=== PATIENT | female | born 1935 | race Caucasian/White ===

== ENCOUNTER → 2018-01-09 | Outpatient (CLI) | payer MEDICARE ==
[~2018-01-09] MED LIST: ARTTEAOPSO OS; ASPI325; ATOR10; ATOR20; ATOR40TA; AZIT250 PO; CHOL10002 PO; CLOP75; CYCL10 PO; DULO30; FURO40 PO; GLIP10 PO; GLIPIZIDE; GLUCHON; GLYB5; HUMALIN N; HUMALOG; HYDACE5 PO; HYDHCL25 PO; HYDMOR2 PO; HYDROXYZINE; Humalog100 UNIT/1; Humulin N100 UNIT/1 SC; Humulin N100 UNIT/1 SQ; IBUP600; INSULANI; KLOR CON PO; LASIX; LEVSOD75 PO; LORA1 PO; LORA2 PO; LOSA50; LOSA50 PO; LOSARTAN; MECL25 PO; MELO7.5 PO; OPTLUBOPOA OS; OXYC5 PO; OXYCODONE; POTA10T PO; PREG50 PO; PROBIOTIC1 EAC1 PO; RXLORA1 PO; Synthroid25 MCG PO; TELM80 PO
[2018-01-09 17:15] LABS: Albumin, Blood 3.8 g/dL (3.4-5.0); Albumin/Globulin Ratio 1.2 (0.8-1.8); Bilirubin, Total 1.7 mg/dL (0.1-1.0); Bun/Creatinine Ratio 20.5 (12.0-20.0); Calcium, Blood 9.3 mg/dL (8.5-10.1); Creatinine, Blood 0.98 mg/dL (0.40-1.00); Globulin, Blood 3.3 g/dL (2.2-4.0); Potassium, Blood 4.5 mmol/L (3.5-5.5); Total Protein, Blood 7.1 g/dL (6.4-8.2)
== END ==
LOC: LAB 12:00
PROVIDERS: Internal Medicine Hematology & Oncology
DX: E11.9 Type 2 diabetes mellitus without complications (principal); R53.81 Other malaise; R53.83 Other fatigue
CPT/HCPCS: 80053; 83036

== ENCOUNTER 2018-06-14 10:54 | Day surgery (SDC) | payer MEDICARE ==
[~2018-06-14] VITALS: Ht 172.7 cm; Wt 98.6 kg
== END 2018-06-14 13:13 | disposition home or self-care (01) ==
LOC: ORSCSDS 10:54
PROVIDERS: Internal Medicine Gastroenterology
PROC: 0DJD8ZZ Inspection of Lower Intestinal Tract, Via Natural or Artificial Opening Endoscopic (ICD-10-PCS; principal; 2018-06-14 12:00)
PROC: 0DB68ZX Excision of Stomach, Via Natural or Artificial Opening Endoscopic, Diagnostic (ICD-10-PCS; principal; 2018-06-14 12:00)
PROC: 0DB98ZX Excision of Duodenum, Via Natural or Artificial Opening Endoscopic, Diagnostic (ICD-10-PCS; principal; 2018-06-14 12:00)
DX: R10.13 Epigastric pain (principal); K64.4 Residual hemorrhoidal skin tags; K64.8 Other hemorrhoids; K57.30 Diverticulosis of large intestine without perforation or abscess without bleeding; Z86.010 Personal history of colon polyps; Z12.11 Encounter for screening for malignant neoplasm of colon; I10 Essential (primary) hypertension; E11.9 Type 2 diabetes mellitus without complications; J45.909 Unspecified asthma, uncomplicated; M79.7 Fibromyalgia; E78.5 Hyperlipidemia, unspecified; G47.33 Obstructive sleep apnea (adult) (pediatric); Z79.4 Long term (current) use of insulin; Z79.899 Other long term (current) drug therapy
CPT/HCPCS: 43239; G0105; 82947; 88305; 88342; J2250; J7030

== ENCOUNTER 2018-10-17 13:18 | Emergency (ER) | payer MEDICARE ==
[~2018-10-17] VITALS: Ht 170.2 cm; Wt 97.5 kg
[2018-10-17] MEDS ORDERED: Neurontin 300300 MG PO (14:30)
[2018-10-17] MEDS ORDERED: HYDMOR4 PO (14:43)
== END 2018-10-17 14:50 | disposition home or self-care (01) ==
LOC: ER 13:18
DX: G89.29 Other chronic pain (principal); M54.9 Dorsalgia, unspecified; E11.40 Type 2 diabetes mellitus with diabetic neuropathy, unspecified; Z79.4 Long term (current) use of insulin
CPT/HCPCS: 96372; 99283; J1885

== ENCOUNTER 2018-11-22 11:14 | Emergency (ER) | payer MEDICARE ==
[~2018-11-22] VITALS: Ht 172.7 cm; Wt 97.5 kg
[~2018-11-22 11:14] MED LIST changes: +HYDMOR4 PO; +Neurontin 300300 MG PO
[2018-11-22] MEDS ORDERED: Humulin N100 UNIT/1 SQ (11:29)
[2018-11-22] MEDS ORDERED: GLIP5 PO (11:29)
[2018-11-22] MEDS ORDERED: GABA300 PO (11:30)
[2018-11-22] MEDS ORDERED: HYDMOR2 PO (11:30)
[2018-11-22 12:05] LABS: BASOPHILS ABSOLUTE AUTO 0.06 K/mm3 (0.00-0.23); BASOPHILS PERCENT AUTO 1 % (0-2); EOSINOPHILS PERCENT AUTO 3 % (0-6); Hematocrit 40.4 % (33.0-51.0); Hemoglobin 13.4 g/dL (11.5-16.0); IMMATURE GRAN ABSOLUTE AUTO 0.01 K/mm3 (0.00-0.10); IMMATURE GRAN PERCENT AUTO 0 % (0-1); LYMPHOCYTES ABSOLUTE AUTO 1.73 K/mm3 (0.84-5.20); LYMPHOCYTES PERCENT AUTO 28 % (21-46); MONOCYTES ABSOLUTE AUTO 0.52 K/mm3 (0.16-1.47); MONOCYTES PERCENT AUTO 8 % (4-13); Mean Corpuscular HGB 32.4 pg (26.0-34.0); Mean Corpuscular HGB Conc 33.2 g/dL (31.5-36.5); Mean Corpuscular Volume 98 fL (80-100); Mean Platelet Volume 11.4 fL (9.1-12.4); NEUTROPHILS ABSOLUTE AUTO 3.64 K/mm3 (1.96-9.15); NEUTROPHILS PERCENT AUTO 59 % (41-73); Platelet Count 325 K/mm3 (150-400); RDW Coefficient Variation 11.9 % (11.7-14.2); RDW Standard Deviation 43.3 fL (35.1-46.3); Red Blood Cell Count 4.13 M/mm3 (3.80-5.20); White Blood Cell Count 6.16 K/mm3 (4.00-11.30)
[2018-11-22 12:06] LABS: Source, Urine Clean Catch
[2018-11-22 12:12] LABS: Bilirubin, Urine Neg (Neg); Blood, Urine 2+ (Neg); Glucose Qualitative, Urine Neg (Neg); Ketones, Urine Neg (Neg); Leukocyte Esterase, Urine 3+ (Neg); Nitrite, Urine Pos (Neg); Protein, Urine 3+ (Neg); Specific Gravity, Urine 1.005 (1.003-1.022); Urobilinogen, Urine NORM (Normal)
[2018-11-22 12:23] LABS: Alanine Aminotransfer (ALT/SGP 32 U/L (12-78); Albumin, Blood 3.6 g/dL (3.4-5.0); Alk Phos 76 U/L (50-136); Anion Gap 8 mmol/L (6-16); Aspartate Aminotrans (AST/SGOT 26 U/L (12-37); Bilirubin, Total 0.4 mg/dL (0.1-1.0); Blood Urea Nitrogen 20 mg/dL (8-24); Bun/Creatinine Ratio 17.9 (12.0-20.0); CO2, Blood 26 mmol/L (21-32); Calcium, Blood 8.9 mg/dL (8.5-10.1); Chloride, Blood 104 mmol/L (98-108); Creatinine, Blood 1.12 mg/dL (0.40-1.00); Globulin, Blood 3.7 g/dL (2.2-4.0); Glomerular Filtration Rate 49 (60-); Glucose, Blood 213 mg/dL (70-99); Potassium, Blood 4.1 mmol/L (3.5-5.5); Sodium, Blood 138 mmol/L (136-145); Total Protein, Blood 7.3 g/dL (6.4-8.2); Troponin I <0.015 ng/mL (0.000-0.040)
[2018-11-22 12:27] LABS: Appearance, Urine Hazy (Clear); Color, Urine Yellow (P-Yellow)
[2018-11-22 12:32] LABS: White Blood Cells, Urine TNTC /hpf (0-5)
[2018-11-22 12:34] LABS: Bacteria Many /hpf; Squamous Epithelial Cells Mod /hpf (Few)
[2018-11-22] MEDS ORDERED: Roxicodone5 MG PO (13:32)
[2018-11-22] MEDS ORDERED: CEPH500 PO (13:32)
== END 2018-11-22 13:44 | disposition home or self-care (01) ==
LOC: ER 11:14
PROVIDERS: Physician Assistant
DX: N39.0 Urinary tract infection, site not specified (principal); G89.29 Other chronic pain; R52 Pain, unspecified; E11.40 Type 2 diabetes mellitus with diabetic neuropathy, unspecified; J45.909 Unspecified asthma, uncomplicated; Z79.899 Other long term (current) drug therapy; Z79.4 Long term (current) use of insulin; Z88.8 Allergy status to other drugs, medicaments and biological substances
CPT/HCPCS: 36415; 80053; 81001; 84484; 85025; 87077; 87086; 87186; 93005; 93010; 96374; 96375; 99284-25; J1170; J2405

== ENCOUNTER 2018-12-28 16:53 | Emergency (ER) | payer MEDICARE ==
[~2018-12-28] VITALS: Ht 172.7 cm; Wt 97.5 kg
[~2018-12-28 16:53] MED LIST changes: +CEPH500 PO; +GABA300 PO; +GLIP5 PO; +Roxicodone5 MG PO
[2018-12-28] MEDS ORDERED: KETO10 PO (18:54)
[2018-12-28] MEDS ORDERED: Cyclobenzaprine5 MG PO (18:54)
== END 2018-12-28 19:12 | disposition home or self-care (01) ==
LOC: ER 16:53
DX: G89.29 Other chronic pain (principal); M54.5 Low back pain; Z88.8 Allergy status to other drugs, medicaments and biological substances; Z79.899 Other long term (current) drug therapy; Z79.4 Long term (current) use of insulin
CPT/HCPCS: 96372; 99283-25; J1885

== ENCOUNTER → 2019-05-02 | Outpatient (CLI) | payer MEDICARE ==
[~2019-05-02] MED LIST changes: +ATOR40TA PO; +Cyclobenzaprine5 MG PO; +KETO10 PO; +METO25 PO
[2019-05-02 17:25] LABS: Creatinine Urine 65.9 mg/dL (27.00-270.00)
== END | disposition home or self-care (01) ==
LOC: LAB 10:57 → LAB SHORT 10:57 → LAB FUT 04-30 17:20
PROVIDERS: Internal Medicine Nephrology
DX: N18.3 Chronic kidney disease, stage 3 (moderate) (principal); D63.1 Anemia in chronic kidney disease; N25.81 Secondary hyperparathyroidism of renal origin; E55.9 Vitamin D deficiency, unspecified; E78.00 Pure hypercholesterolemia, unspecified; R76.9 Abnormal immunological finding in serum, unspecified; R94.5 Abnormal results of liver function studies; R94.6 Abnormal results of thyroid function studies; D51.8 Other vitamin B12 deficiency anemias; D52.8 Other folate deficiency anemias; D50.9 Iron deficiency anemia, unspecified
CPT/HCPCS: 81050; 82043; 82570; 84156

== ENCOUNTER → 2020-01-30 | Outpatient (CLI) | payer MEDICARE ==
[2020-01-30 18:13] LABS: Bilirubin, Urine Neg (Neg); Blood, Urine 1+ (Neg); Glucose Qualitative, Urine 4+ (Neg); Ketones, Urine Neg (Neg); Leukocyte Esterase, Urine Neg (Neg); Nitrite, Urine Pos (Neg); Protein, Urine 2+ (Neg); Urobilinogen, Urine NORM (Normal)
[2020-01-30 18:31] LABS: Appearance, Urine Clear (Clear); Color, Urine Yellow (P-Yellow)
[2020-01-30 18:33] LABS: Bacteria Few /hpf; Red Blood Cells, Urine Rare /hpf (0-2); Squamous Epithelial Cells Few /hpf (Few); White Blood Cells, Urine Rare /hpf (0-5)
[2020-01-30 18:34] LABS: Hyaline Casts 0-2 /lpf (0-2)
== END | disposition home or self-care (01) ==
LOC: LAB 17:23 → LAB SHORT 17:23
PROVIDERS: Internal Medicine Hematology & Oncology
DX: N39.0 Urinary tract infection, site not specified (principal)
CPT/HCPCS: 81001; 87086

== ENCOUNTER → 2020-12-31 | Outpatient (CLI) | payer MEDICARE ==
[~2020-12-31] MED LIST changes: +Ativan0.5 MG PO; +LIDO700A20 TOP
[2020-12-31 19:58] LABS: U Amphetamine Screen Not Detected; U Barbituate Screen Not Detected; U Benzodiazapine Screen Not Detected; U Buprenorphine Screen Not Detected; U Cannabinoids Screen Not Detected; U Cocaine Screen Not Detected; U Methadone Screen Not Detected; U Methamphetamine Screen Not Detected; U Opiates Screen Not Detected; U Oxycodone Screen DETECTED; U Phencyclidine Screen Not Detected; U Propoxyphene Screen Not Detected
== END ==
LOC: LAB SHORT 18:21 → LAB 18:21
PROVIDERS: Internal Medicine Hematology & Oncology
DX: Z51.81 Encounter for therapeutic drug level monitoring (principal); Z79.899 Other long term (current) drug therapy
CPT/HCPCS: G0480

== ENCOUNTER 2021-03-16 15:57 | Emergency (ER) | payer MEDICARE ==
[~2021-03-16] VITALS: Ht 172.7 cm; Wt 97.5 kg
[~2021-03-16 15:57] MED LIST changes: -Ativan0.5 MG PO; -LIDO700A20 TOP
[2021-03-16] MEDS ORDERED: LIDO700A20 TOP (18:27)
== END 2021-03-16 18:40 | disposition home or self-care (01) ==
LOC: ER 15:57
DX: S20.212A Contusion of left front wall of thorax, initial encounter (principal); J45.909 Unspecified asthma, uncomplicated; Z79.899 Other long term (current) drug therapy; Z88.8 Allergy status to other drugs, medicaments and biological substances; W01.10XA Fall on same level from slipping, tripping and stumbling with subsequent striking against unspecified object, initial encounter
CPT/HCPCS: 71101; 99283-25; A9270

== ENCOUNTER 2021-03-22 14:20 | Emergency (ER) | payer MEDICARE ==
[~2021-03-22] VITALS: Ht 172.7 cm; Wt 97.5 kg
[~2021-03-22 14:20] MED LIST changes: +LIDO700A20 TOP
[2021-03-22 15:08] LABS: BASOPHILS ABSOLUTE AUTO 0.06 K/mm3 (0.00-0.23); BASOPHILS PERCENT AUTO 1 % (0-2); EOSINOPHILS ABSOLUTE AUTO 0.38 K/mm3 (0.00-0.68); EOSINOPHILS PERCENT AUTO 4 % (0-6); Hematocrit 36.3 % (33.0-51.0); Hemoglobin 11.7 g/dL (11.5-16.0); IMMATURE GRAN ABSOLUTE AUTO 0.03 K/mm3 (0.00-0.10); IMMATURE GRAN PERCENT AUTO 0 % (0-1); LYMPHOCYTES ABSOLUTE AUTO 2.21 K/mm3 (0.84-5.20); LYMPHOCYTES PERCENT AUTO 21 % (21-46); MONOCYTES ABSOLUTE AUTO 0.73 K/mm3 (0.16-1.47); MONOCYTES PERCENT AUTO 7 % (4-13); Mean Corpuscular HGB 31.8 pg (26.0-34.0); Mean Corpuscular HGB Conc 32.2 g/dL (31.5-36.5); Mean Corpuscular Volume 99 fL (80-100); Mean Platelet Volume 10.8 fL (9.1-12.4); NEUTROPHILS ABSOLUTE AUTO 7.23 K/mm3 (1.96-9.15); NEUTROPHILS PERCENT AUTO 68 % (41-73); Platelet Count 485 K/mm3 (150-400); RDW Coefficient Variation 12.8 % (11.7-14.2); Red Blood Cell Count 3.68 M/mm3 (3.80-5.20); White Blood Cell Count 10.64 K/mm3 (4.00-11.30)
[2021-03-22 15:32] LABS: Alanine Aminotransfer (ALT/SGP 32 U/L (12-78); Albumin, Blood 3.4 g/dL (3.4-5.0); Albumin/Globulin Ratio 0.9 (0.8-1.8); Alk Phos 120 U/L (50-136); Anion Gap 3 mmol/L (6-16); Aspartate Aminotrans (AST/SGOT 31 U/L (12-37); Bilirubin, Total 0.4 mg/dL (0.1-1.0); Blood Urea Nitrogen 43 mg/dL (8-24); Bun/Creatinine Ratio 33.1 (12.0-20.0); CO2, Blood 28 mmol/L (21-32); Calcium, Blood 9.3 mg/dL (8.5-10.1); Chloride, Blood 104 mmol/L (98-108); Globulin, Blood 3.9 g/dL (2.2-4.0); Glomerular Filtration Rate 41 (60-); Glucose, Blood 60 mg/dL (70-99); Potassium, Blood 4.4 mmol/L (3.5-5.5); Sodium, Blood 135 mmol/L (136-145); Total Protein, Blood 7.3 g/dL (6.4-8.2); Troponin I <0.015 ng/mL (0.000-0.040)
[2021-03-22 19:39] LABS: Source, Urine Clean Catch
[2021-03-22 19:42] LABS: Appearance, Urine Clear (Clear); Bilirubin, Urine Neg (Neg); Blood, Urine 2+ (Neg); Color, Urine Yellow (P-Yellow); Glucose Qualitative, Urine Neg (Neg); Ketones, Urine Neg (Neg); Leukocyte Esterase, Urine Neg (Neg); Nitrite, Urine Neg (Neg); Protein, Urine 2+ (Neg); Urobilinogen, Urine NORM (Normal)
[2021-03-22 19:50] LABS: Bacteria Few /hpf; Red Blood Cells, Urine Rare /hpf (0-2); Squamous Epithelial Cells Few /hpf (Few)
[2021-03-22] MEDS ORDERED: LIDO700A20 TOP (19:52)
== END 2021-03-22 20:05 | disposition home or self-care (01) ==
LOC: ER 14:20
PROVIDERS: Emergency Medicine; Physician Assistant
DX: S22.32XA Fracture of one rib, left side, initial encounter for closed fracture (principal); I10 Essential (primary) hypertension; E11.9 Type 2 diabetes mellitus without complications; Z88.8 Allergy status to other drugs, medicaments and biological substances; Z79.4 Long term (current) use of insulin; W01.10XA Fall on same level from slipping, tripping and stumbling with subsequent striking against unspecified object, initial encounter
CPT/HCPCS: 36415; 71046; 80053; 81001; 82947; 83880; 84484; 85025; 93005; 93010; 99284-25; A9270

== ENCOUNTER 2021-03-28 12:58 | Emergency (ER) | payer MEDICARE ==
[~2021-03-28] VITALS: Ht 165.1 cm; Wt 90.7 kg
== END 2021-03-28 15:48 | disposition home or self-care (01) ==
LOC: ER 12:58
DX: S20.212A Contusion of left front wall of thorax, initial encounter (principal); Z88.8 Allergy status to other drugs, medicaments and biological substances; Z79.84 Long term (current) use of oral hypoglycemic drugs; Z79.899 Other long term (current) drug therapy; W18.2XXA Fall in (into) shower or empty bathtub, initial encounter
CPT/HCPCS: 99283; A9270

== ENCOUNTER → 2021-04-07 | Outpatient (CLI) | payer MEDICARE ==
[~2021-04-07] MED LIST changes: +Ativan0.5 MG PO
== END | disposition home or self-care (01) ==
LOC: LAB SHORT 16:38
DX: N39.0 Urinary tract infection, site not specified (principal)
CPT/HCPCS: 87086

== ENCOUNTER 2021-05-17 08:45 | Emergency (ER) | payer MEDICARE ==
[~2021-05-17] VITALS: Ht 172.7 cm; Wt 90.7 kg
[~2021-05-17 08:45] MED LIST changes: -Ativan0.5 MG PO
[2021-05-17 09:24] LABS: BASOPHILS ABSOLUTE AUTO 0.07 K/mm3 (0.00-0.23); BASOPHILS PERCENT AUTO 1 % (0-2); EOSINOPHILS ABSOLUTE AUTO 0.23 K/mm3 (0.00-0.68); EOSINOPHILS PERCENT AUTO 3 % (0-6); Hematocrit 39.9 % (33.0-51.0); Hemoglobin 13.2 g/dL (11.5-16.0); IMMATURE GRAN ABSOLUTE AUTO 0.02 K/mm3 (0.00-0.10); IMMATURE GRAN PERCENT AUTO 0 % (0-1); LYMPHOCYTES ABSOLUTE AUTO 2.09 K/mm3 (0.84-5.20); LYMPHOCYTES PERCENT AUTO 24 % (21-46); MONOCYTES ABSOLUTE AUTO 0.63 K/mm3 (0.16-1.47); MONOCYTES PERCENT AUTO 7 % (4-13); Mean Corpuscular HGB Conc 33.1 g/dL (31.5-36.5); Mean Corpuscular Volume 97 fL (80-100); Mean Platelet Volume 11.7 fL (9.1-12.4); NEUTROPHILS ABSOLUTE AUTO 5.79 K/mm3 (1.96-9.15); NEUTROPHILS PERCENT AUTO 66 % (41-73); Platelet Count 464 K/mm3 (150-400); RDW Standard Deviation 46.5 fL (35.1-46.3); Red Blood Cell Count 4.12 M/mm3 (3.80-5.20); White Blood Cell Count 8.83 K/mm3 (4.00-11.30)
[2021-05-17 09:37] LABS: Alanine Aminotransfer (ALT/SGP 37 U/L (12-78); Albumin, Blood 3.4 g/dL (3.4-5.0); Albumin/Globulin Ratio 0.8 (0.8-1.8); Alk Phos 113 U/L (50-136); Anion Gap 6 mmol/L (6-16); Aspartate Aminotrans (AST/SGOT 39 U/L (12-37); Bilirubin, Total 0.6 mg/dL (0.1-1.0); Blood Urea Nitrogen 22 mg/dL (8-24); Bun/Creatinine Ratio 21.8 (12.0-20.0); CO2, Blood 28 mmol/L (21-32); Calcium, Blood 9.5 mg/dL (8.5-10.1); Chloride, Blood 103 mmol/L (98-108); Creatinine, Blood 1.01 mg/dL (0.40-1.00); Glomerular Filtration Rate 52 (60-); Glucose, Blood 155 mg/dL (70-99); Potassium, Blood 4.3 mmol/L (3.5-5.5); Sodium, Blood 137 mmol/L (136-145); Total Protein, Blood 7.4 g/dL (6.4-8.2); Troponin I <0.015 ng/mL (0.000-0.040)
[2021-05-17] MEDS ORDERED: Ativan0.5 MG PO (11:31)
== END 2021-05-17 13:18 | disposition home or self-care (01) ==
LOC: ER 08:45
PROVIDERS: Physician Assistant
DX: M54.6 Pain in thoracic spine (principal); F41.9 Anxiety disorder, unspecified; I10 Essential (primary) hypertension; Z88.8 Allergy status to other drugs, medicaments and biological substances
CPT/HCPCS: 36415; 71046; 80053; 84484; 85025; 85379; 93005; 93010; 96374; 96375; 99284-25; A9270; J1885; J2060; J2405

== ENCOUNTER 2021-07-28 14:09 | Emergency (ER) | payer MEDICARE ==
[~2021-07-28] VITALS: Ht 172.7 cm; Wt 90.7 kg
[~2021-07-28 14:09] MED LIST changes: +Ativan0.5 MG PO
[2021-07-28 14:54] LABS: BASOPHILS ABSOLUTE AUTO 0.05 K/mm3 (0.00-0.23); BASOPHILS PERCENT AUTO 1 % (0-2); EOSINOPHILS ABSOLUTE AUTO 0.22 K/mm3 (0.00-0.68); EOSINOPHILS PERCENT AUTO 2 % (0-6); Hematocrit 39.2 % (33.0-51.0); Hemoglobin 13.1 g/dL (11.5-16.0); IMMATURE GRAN ABSOLUTE AUTO 0.03 K/mm3 (0.00-0.10); IMMATURE GRAN PERCENT AUTO 0 % (0-1); LYMPHOCYTES ABSOLUTE AUTO 1.62 K/mm3 (0.84-5.20); LYMPHOCYTES PERCENT AUTO 16 % (21-46); MONOCYTES ABSOLUTE AUTO 0.75 K/mm3 (0.16-1.47); MONOCYTES PERCENT AUTO 7 % (4-13); Mean Corpuscular HGB 32.3 pg (26.0-34.0); Mean Corpuscular HGB Conc 33.4 g/dL (31.5-36.5); Mean Corpuscular Volume 97 fL (80-100); Mean Platelet Volume 11.5 fL (9.1-12.4); NEUTROPHILS ABSOLUTE AUTO 7.43 K/mm3 (1.96-9.15); NEUTROPHILS PERCENT AUTO 74 % (41-73); Platelet Count 452 K/mm3 (150-400); RDW Coefficient Variation 12.5 % (11.7-14.2); Red Blood Cell Count 4.06 M/mm3 (3.80-5.20)
[2021-07-28 15:09] LABS: Alanine Aminotransfer (ALT/SGP 32 U/L (12-78); Albumin, Blood 3.4 g/dL (3.4-5.0); Albumin/Globulin Ratio 0.8 (0.8-1.8); Alk Phos 112 U/L (50-136); Anion Gap 5 mmol/L (6-16); Aspartate Aminotrans (AST/SGOT 31 U/L (12-37); Bilirubin, Total 0.4 mg/dL (0.1-1.0); Blood Urea Nitrogen 36 mg/dL (8-24); Bun/Creatinine Ratio 25.5 (12.0-20.0); CO2, Blood 30 mmol/L (21-32); Calcium, Blood 10.1 mg/dL (8.5-10.1); Chloride, Blood 101 mmol/L (98-108); Creatinine, Blood 1.41 mg/dL (0.40-1.00); Globulin, Blood 4.1 g/dL (2.2-4.0); Glomerular Filtration Rate 35 (60-); Glucose, Blood 161 mg/dL (70-99); Sodium, Blood 136 mmol/L (136-145); Total Protein, Blood 7.5 g/dL (6.4-8.2); Troponin I <0.015 ng/mL (0.000-0.040)
== END 2021-07-28 21:06 | disposition home or self-care (01) ==
LOC: ER 14:09
PROVIDERS: Physician Assistant
DX: H53.9 Unspecified visual disturbance (principal); R42 Dizziness and giddiness; R10.9 Unspecified abdominal pain; G89.29 Other chronic pain; J45.909 Unspecified asthma, uncomplicated; I10 Essential (primary) hypertension; I25.10 Atherosclerotic heart disease of native coronary artery without angina pectoris; E11.9 Type 2 diabetes mellitus without complications; I25.2 Old myocardial infarction; Z88.8 Allergy status to other drugs, medicaments and biological substances; Z79.899 Other long term (current) drug therapy; Z79.84 Long term (current) use of oral hypoglycemic drugs
CPT/HCPCS: 36415; 70450; 80053; 84484; 85025; 93005; 93010; 99284-25

== ENCOUNTER 2022-03-26 16:40 | Inpatient (IN) | payer MEDICARE ==
[~2022-03-26] VITALS: Ht 167.6 cm; Wt 96.7 kg
[2022-03-26 16:50] LABS: Calcium, Ionized (POC) 1.11 mmol/L (1.10-1.46); Chloride (POC) 102 mmol/L (98-108); Glucose (ISTAT POC) 475 mg/dL (70-99); Hemoglobin (POC) 15.6 g/dL (12.0-16.0); Potassium (POC) 5.2 mmol/L (3.5-5.5); Sodium (POC) 137 mmol/L (135-148); Total CO2 (POC) 25 mmol/L (21-32)
[2022-03-26 17:04] LABS: Source, Urine Foley catheter
[2022-03-26 17:05] LABS: BASOPHILS ABSOLUTE AUTO 0.03 K/mm3 (0.00-0.23); BASOPHILS PERCENT AUTO 0 % (0-2); EOSINOPHILS PERCENT AUTO 0 % (0-6); Hematocrit 43.6 % (33.0-51.0); Hemoglobin 14.4 g/dL (11.5-16.0); IMMATURE GRAN ABSOLUTE AUTO 0.07 K/mm3 (0.00-0.10); IMMATURE GRAN PERCENT AUTO 0 % (0-1); LYMPHOCYTES ABSOLUTE AUTO 1.05 K/mm3 (0.84-5.20); LYMPHOCYTES PERCENT AUTO 6 % (21-46); MONOCYTES ABSOLUTE AUTO 0.94 K/mm3 (0.16-1.47); MONOCYTES PERCENT AUTO 6 % (4-13); Mean Corpuscular HGB 31.4 pg (26.0-34.0); Mean Corpuscular Volume 95 fL (80-100); Mean Platelet Volume 11.5 fL (9.1-12.4); NEUTROPHILS ABSOLUTE AUTO 14.81 K/mm3 (1.96-9.15); NEUTROPHILS PERCENT AUTO 88 % (41-73); Platelet Count 504 K/mm3 (150-400); RDW Coefficient Variation 12.9 % (11.7-14.2); RDW Standard Deviation 44.7 fL (35.1-46.3); Red Blood Cell Count 4.58 M/mm3 (3.80-5.20)
[2022-03-26 17:06] LABS: Appearance, Urine Clear (Clear); Bilirubin, Urine Neg (Neg); Blood, Urine 3+ (Neg); Color, Urine Yellow (P-Yellow); Glucose Qualitative, Urine Neg (Neg); Ketones, Urine 1+ (Neg); Leukocyte Esterase, Urine Neg (Neg); Nitrite, Urine Neg (Neg); Protein, Urine 3+ (Neg); Urobilinogen, Urine NORM (Normal)
[2022-03-26 17:15] LABS: Bacteria Mod /hpf; Hyaline Casts 0-2 /lpf (0-2); Squamous Epithelial Cells Mod /hpf (Few)
[2022-03-26 17:19] LABS: PCO2 Arterial 38.1 mmHg (35-45); pH Blood Arterial 7.43 (7.35-7.45)
[2022-03-26 17:23] LABS: Albumin, Blood 3.6 g/dL (3.4-5.0); Albumin/Globulin Ratio 0.8 (0.8-1.8); Bilirubin, Total 0.6 mg/dL (0.1-1.0); Bun/Creatinine Ratio 28.7 (12.0-20.0); Calcium, Blood 9.5 mg/dL (8.5-10.1); Creatine Kinase MB 1.1 ng/mL (0.0-3.6); Creatine Kinase MB Index 0.4 (0.0-4.0); Creatinine, Blood 1.71 mg/dL (0.40-1.00); Globulin, Blood 4.3 g/dL (2.2-4.0); Total Protein, Blood 7.9 g/dL (6.4-8.2)
[2022-03-26] MEDS ORDERED: GLIP10 PO (18:02)
[2022-03-26] MEDS ORDERED: FURO20 PO (18:02)
[2022-03-26] MEDS ORDERED: LEVSOD25 PO (18:03)
[2022-03-26] MEDS ORDERED: ASPI325 PO (18:03)
[2022-03-26] MEDS ORDERED: VITAMIN D325 MC3 PO (18:04)
[2022-03-26 18:20] LABS: Influenza A, PCR NEGATIVE (NEGATIVE); Influenza B, PCR NEGATIVE (NEGATIVE); Resp Syncytial Virus, PCR NEGATIVE (NEGATIVE); SARS-Cov-2 (COVID-19) PCR, MMC NEGATIVE (NEGATIVE)
[2022-03-26 19:20] LABS: U Amphetamine Screen Not Detected; U Barbituate Screen Not Detected; U Benzodiazapine Screen Not Detected; U Buprenorphine Screen Not Detected; U Cannabinoids Screen Not Detected; U Cocaine Screen Not Detected; U Methadone Screen Not Detected; U Methamphetamine Screen Not Detected; U Opiates Screen Not Detected; U Oxycodone Screen DETECTED; U Phencyclidine Screen Not Detected; U Propoxyphene Screen Not Detected
--- NOTE | 2022-03-26 19:40 | NUR ---
ARRIVAL TO ICU PT WAS INTUBATED BY EMS, 7.0 TUBE THAT IS 23CM AT LIPS. VENT SETTINGS AC/VC+ 16/450/5/50%. SHE IS RECEIVING PROPOFOL 10MCG/KG/MIN. SHE HAS NO GAG OR COUGH. SHE MAKES SMALL MOVEMENTS WITH HEAD AND EXTREMITIES BUT DOES NOT FOLLOW ANY COMMANDS. SHE WITHDRAWS FROM PAINFUL STIMULI. PROPOFOL UP TO 20MCG/KG/MIN. COARSE AND RHONCHI THROUGHOUT. BOWEL TONES HYPOACTIVE. TONGUE IS SWOLLEN, UNKNOWN CAUSE. BOOTH PATENT AND DRAINING CLEAR YELLOW URINE TO GRAVITY. SHE IS HYPERTENSIVE WITH SBP 190S. DAUGHTER SHERIN AND NEPHEW ELIEL AT BEDSIDE. THEY PROVIDED ADMISSION HEALTH HISTORY. DR SHEA AT BEDSIDE FOR EVALUATION. UPDATED FAMILY ON PT'S CONDITION AND PLAN OF CARE. FAMILY EXPRESSES PT WOULD WANT VISIT FROM CREDIT CARD INTERVIEWER AND PALLIATIVE CARE. NARCAN INFUSION AND NS STARTED. PROPOFOL ON STANDBY. SEE SHIFT ASSESSMENT.
--- NOTE | 2022-03-26 21:50 | NUR ---
UPDATE PROPOFOL REMAINS ON STANDBY, NARCAN INFUSING. PT NOW HAS COUGH REFLEX WHEN SUCTIONING ETT AND FACIAL GRIMACING. PT OPENS EYES TO VERBAL COMMAND, SQUEEZES WITH BILAT HANDS AND WIGGLES TOES TO COMMAND. SHE IS ANSWERING QUESTIONS BY NODDING/SHAKING HEAD. SHE DENIES PAIN OR DISCOMFORT. EXPLAINED PT IS IN THE HOSPITAL TO WHICH SHE NODS HER HEAD "YES". SHE REMAINS HYPERTENSIVE, HYDRALAZINE GIVEN PER EMAR. ANTIBIOTIC STARTED. WILL CONTINUE TO MONITOR.
--- NOTE | 2022-03-27 00:15 | NUR ---
UPDATE/POSSIBLE ASPIRATION PT RECEIVING NARCAN INFUSION, PROPOFOL ON STANDBY. PT WAKENS TO VERBAL STIMULI ALTHOUGH SLOW TO RESPOND SHE IS ABLE TO FOLLOW SIMPLE COMMANDS INCLUDING OPENING EYES, SQUEEZING HANDS AND WIGGLING TOES. PT BEGINS COUGHING AND VOMITING BROWN LIQUID FROM HER MOUTH AND NOSE. HEAD OF BED RAISED TO HIGH FOWLERS POSITION, ORAL AND ETT SUCTIONING PROVIDED. PT MEDICATED WITH ZOFRAN. PT CONTINUES TO GAG/COUGH AND VOMIT. NARCAN INFUSION STOPPED, PROPOFOL REINITIATED AT 20MCG/KG/MIN. ONCE PT IS CALM, COMPLETE BEDBATH AND ORAL CARE DONE. CORE TEMP INCREASED TO 99.6. DR BOO NOTIFIED OF EVENT. ORDER RECEIVED FOR VBG. PLAN TO COMPLETE ROUTINE CHEST XRAY AND SCHEDULED ANTIBIOTICS. IF PT'S CONDITION DETERIORATES, PLAN FOR STAT CHEST XRAY AND WILL NOTIFY PROVIDER.
[2022-03-27 01:24] LABS: Base Excess Venous 1.7 mmol/L; PCO2 Venous 44.1 mmHg (38-42); pH Blood Venous 7.39 (7.34-7.37)
[2022-03-27 03:23] LABS: PCO2 Arterial 43.5 mmHg (35-45); PO2 Arterial 62.5 mmHg (80-100); pH Blood Arterial 7.42 (7.35-7.45)
--- NOTE | 2022-03-27 06:23 | NUR ---
SHIFT SUMMARY PT REMAINS INTUBATED WITH VENT SETTINGS AC/VC+ 16/450/5/30%. SHE IS RECEIVING PROPOFOL 10MCG/KG/MIN. SHE WAS PREVIOUSLY ON NARCAN DRIP WITHOUT SEDATION. SHE WAS ABLE TO FOLLOW SIMPLE COMMANDS, SQUEEZE HANDS, WIGGLE TOES, ANSWER QUESTIONS BY NODDING/SHAKING HEAD. SHE BEGAN TO FREQUENTLY COUGH. SEE PREVIOUS NOTE REGARDING VOMITING. SINCE THIS EPISODE AND PROPOFOL BEING RESTARTED, PT HAS NOT HAD MORE EMESIS. CHEST XRAY DONE THIS AM. CORE TMAX 99.8. ICE PACKS AND FAN APPLIED. SHE IS RECEIVING NS 75ML/HR. OGT REMAINS CONNECTED TO LOW INT SUCTION WITH BILE AND BROWN DRAINAGE. COLLECTED 200ML OF OGT DRAINAGE THIS SHIFT. BOOTH IS PATENT AND DRAINING CLEAR/YELLOW URINE WITH APPROX 2L OUT THIS SHIFT. PLAN FOR ECHO THIS AM AND REPEAT HEAD CT IN AFTERNOON. WILL REPORT TO ONCOMING RN.
--- NOTE | 2022-03-27 06:54 | NUR ---
UPDATE SINCE PROPOFOL DECREASED FROM 15 TO 10MCG/KG/MIN PT IS ABLE TO PARTIALLY OPEN EYES TO VERBAL COMMAND. SHE ATTEMPTS TO TURN HEAD TOWARD SOUND. SHE IS ABLE TO SQUEEZE STRONGLY WITH HER R HAND, SLOWER AND WEAKER WITH L HAND. PT WIGGLES TOES ON BOTH FEET WITHOUT DIFFICULTY. ATTEMPTED TO ASK QUESTIONS BUT SHE IS NOT NODDING/SHAKING HEAD AT THIS TIME.
[2022-03-27 07:00] LABS: BASOPHILS ABSOLUTE AUTO 0.05 K/mm3 (0.00-0.23); BASOPHILS PERCENT AUTO 0 % (0-2); EOSINOPHILS ABSOLUTE AUTO 0.01 K/mm3 (0.00-0.68); EOSINOPHILS PERCENT AUTO 0 % (0-6); Hemoglobin 14.1 g/dL (11.5-16.0); IMMATURE GRAN ABSOLUTE AUTO 0.08 K/mm3 (0.00-0.10); IMMATURE GRAN PERCENT AUTO 0 % (0-1); LYMPHOCYTES ABSOLUTE AUTO 1.93 K/mm3 (0.84-5.20); LYMPHOCYTES PERCENT AUTO 9 % (21-46); MONOCYTES ABSOLUTE AUTO 1.72 K/mm3 (0.16-1.47); MONOCYTES PERCENT AUTO 8 % (4-13); Mean Corpuscular HGB 31.5 pg (26.0-34.0); Mean Corpuscular Volume 98 fL (80-100); Mean Platelet Volume 11.4 fL (9.1-12.4); NEUTROPHILS ABSOLUTE AUTO 16.78 K/mm3 (1.96-9.15); NEUTROPHILS PERCENT AUTO 82 % (41-73); Platelet Count 408 K/mm3 (150-400); RDW Coefficient Variation 12.9 % (11.7-14.2); RDW Standard Deviation 46.5 fL (35.1-46.3); Red Blood Cell Count 4.48 M/mm3 (3.80-5.20); White Blood Cell Count 20.57 K/mm3 (4.00-11.30)
[2022-03-27 07:18] LABS: Albumin, Blood 3.2 g/dL (3.4-5.0); Albumin/Globulin Ratio 0.8 (0.8-1.8); Bilirubin, Total 0.7 mg/dL (0.1-1.0); Bun/Creatinine Ratio 32.3 (12.0-20.0); Calcium, Blood 8.9 mg/dL (8.5-10.1); Creatinine, Blood 1.3 mg/dL (0.40-1.00); Globulin, Blood 3.9 g/dL (2.2-4.0); Potassium, Blood 3.8 mmol/L (3.5-5.5); Total Protein, Blood 7.1 g/dL (6.4-8.2)
--- NOTE | 2022-03-27 08:43 | NUR ---
Care Assumed 0700 Pt intubated and sedated. Propofol 10 mcg/kg/min and NS at 75 ml/hr. AC/VC+ 16/450/5/30%, SPO2 > 90%, LS clear/dim. Brown output during deep oral suction. Pt grimaces during oral care but unable to follow commands. Moves all extrems to painful stimuli. OGT to LIS with brown/bile driange. Bilateral restraints in place. Russ in place with yellow/clear output of 25 mls in bag currently. VSS. NSR with occasional PVC'S, HR 80'S. SBP 150'S. Core temp of 99.6, ice packs in place.
--- NOTE | 2022-03-27 09:35 | NUR ---
Providers visits Dr. Roberts at bedside and asked to start sedation vacation. Updated on current care. Dr. Maurice and Dr. Dunaway at bedside and updated on current care. Providers ordered see labs and medication, see emar. Daughter, and son at bedside, updated on care by providers.
--- NOTE | 2022-03-27 10:39 | NUR ---
Sedation vacation 0938 PS 5/5, FIO2 30%, tolerating well RR 22, tidal volumes 300's. Propofol placed on SB. Pt able to open her eyes, following directions, nod yes/no to questions but still drowsy. Strong fence supervisor on right hand and weak on left hand. Moves lower extrems when asked to. Family at bedside. When asked if she remembers what happened, pt nods no. Updated on current events and care being provided. VSS.
--- NOTE | 2022-03-27 12:08 | NUR ---
GLucose elevated [address] Roberts and pt to be started on insulin GTT. Pt has poor access and powerglide to be placed.
--- NOTE | 2022-03-27 17:00 | NUR ---
SEDATION VACATION ENDED Dr. Roberts at bedside and Vent settings changed from PS TO AC/VC 16/450/5/40%, SPO2 > 90%. Pt had one episode of SPO2 decreasing to 84%, suctioned large thick blood tinged secreations from ETT. Another episode of SPO2 decreasing to 88%, not improved with suctioning and after this Dr. Roberts swithced to AC/VC. Propofol 10 mcg/kg/min restarted.
--- NOTE | 2022-03-27 17:45 | NUR ---
PT TO CT at [address] VIA BED AND RT AT BEDSIDE. PT TOLERATED WELL. VSS.
--- NOTE | 2022-03-27 17:59 | NUR ---
Family update Spoke to patients ina ([place] [phone]) via phone and updated on current care being provided. All questions answered.
--- NOTE | 2022-03-27 19:20 | NUR ---
ASSUMPTION OF CARE PT REMAINS INTUBATED WITH VENT SETTINGS AC/VC 16/450/5/40%. SHE IS RECEIVING PROPOFOL 10MCG/KG/MIN, INSULIN 2UNITS/HR AND NS TKO. BOOTH PATENT AND DRAINING TO GRAVITY. VSS. SEE SHIFT ASSESSMENT.
--- NOTE | 2022-03-27 20:05 | NUR ---
Shift Summary Pt intubated and sedated. AC/VC 16/450/5/40%, SPO2 > 92%, LS clear/dim. Propofol GTT 10 mcg/kg/min and insulin 2 u/hr infusing via IRENE powerglide. Following commands througout the day when not on propofol. BT active, OGT to LIS. SWB in place. Temp dunn in place. Pt hypertensive and treated per emar. VSS now. Family at bedside throughout the day. Will report to nightshift nurse.
[2022-03-28 04:04] LABS: BASOPHILS ABSOLUTE AUTO 0.08 K/mm3 (0.00-0.23); BASOPHILS PERCENT AUTO 0 % (0-2); EOSINOPHILS ABSOLUTE AUTO 0.08 K/mm3 (0.00-0.68); EOSINOPHILS PERCENT AUTO 0 % (0-6); Hematocrit 41.8 % (33.0-51.0); Hemoglobin 13.4 g/dL (11.5-16.0); IMMATURE GRAN PERCENT AUTO 1 % (0-1); LYMPHOCYTES ABSOLUTE AUTO 2.23 K/mm3 (0.84-5.20); LYMPHOCYTES PERCENT AUTO 11 % (21-46); MONOCYTES ABSOLUTE AUTO 1.21 K/mm3 (0.16-1.47); MONOCYTES PERCENT AUTO 6 % (4-13); Mean Corpuscular HGB 31.7 pg (26.0-34.0); Mean Corpuscular HGB Conc 32.1 g/dL (31.5-36.5); Mean Corpuscular Volume 99 fL (80-100); Mean Platelet Volume 11.6 fL (9.1-12.4); NEUTROPHILS ABSOLUTE AUTO 16.78 K/mm3 (1.96-9.15); NEUTROPHILS PERCENT AUTO 82 % (41-73); Platelet Count 383 K/mm3 (150-400); RDW Coefficient Variation 13.2 % (11.7-14.2); RDW Standard Deviation 47.2 fL (35.1-46.3); Red Blood Cell Count 4.23 M/mm3 (3.80-5.20); White Blood Cell Count 20.58 K/mm3 (4.00-11.30)
[2022-03-28 04:27] LABS: Albumin, Blood 2.9 g/dL (3.4-5.0); Albumin/Globulin Ratio 0.8 (0.8-1.8); Bilirubin, Total 0.7 mg/dL (0.1-1.0); Bun/Creatinine Ratio 31.2 (12.0-20.0); Calcium, Blood 9.2 mg/dL (8.5-10.1); Creatinine, Blood 1.12 mg/dL (0.40-1.00); Globulin, Blood 3.8 g/dL (2.2-4.0); Potassium, Blood 3.4 mmol/L (3.5-5.5); Total Protein, Blood 6.7 g/dL (6.4-8.2)
--- NOTE | 2022-03-28 06:13 | NUR ---
SHIFT SUMMARY PT REMAINS INTUBATED WITH VENT SETTINGS AC/VC 16/450/5/40%. PROPOFOL WAS STOPPED AT 0500 TO PREPARE FOR SBT. PT WAKENS TO VERBAL STIMULI, OPENS EYES, SQUEEZES HANDS AND WIGGLES TOES. SHE ANSWERS QUESTIONS BY NODDING HEAD. SHE DENIES PAIN, DISCOMFORT, NAUSEA, AND ANXIETY. SHE RESTS WITH EYES CLOSED. SHE HAS BEEN HYPERTENSIVE ON AND OFF THROUGHOUT THE NIGHT. WHEN RT ARRIVED FOR SBT, SBP 190S. CALL PLACED TO HOSPITALIST. ORDER RECEIVED FOR EXTRA DOSE OF HYDRALAZINE. PROPOFOL RESTARTED AND PLAN TO ATTEMPT SBT AGAIN. OGT REMAINS CONNECTED TO LOW INT SUCTION WITH SMALL AMOUNT OF BROWN/GREEN BILE. BOWEL TONES ACTIVE. SMALL SMEAR THIS SHIFT. BOOTH IS PATENT AND DRAINING YELLOW/CLEAR URINE TO GRAVITY WITH SHIFT OUTPUT OF 425ML. WILL REPORT TO ONCOMING RN.
--- NOTE | 2022-03-28 09:37 | NUR ---
ASSUMED CARE / DR THORNTON: REPORT RECEIVED FROM MALCOM Barriga RN. ASSUMED CARE OF THIS PT AT APPROX 0700. ON ASSESSMENT, THE PT IS RESTING QUIETLY. SEDATION VACATION BEGAN AT 0630 & SBT BEGAN AT 0715. THE PT AWAKENS EASILY TO VERBAL STIMULUS & IS ABLE TO ANSWER SIMPLE YES/ NO QUESTIONS BY NODDING HEAD. SHE FOLLOWS DIRECTIONS BUT IS SLOW TO RESPOND. LS ARE CLEAR T/O, VENT SETTINGS: SPONT W/ PS 5, PEEP 5 & FIO2 40%. ADEQUATE TVs & RR NOTED AT THIS TIME. MONTOR SHOWS SR W/ HR 80-90s, HTN W/ SCHEDULED AM MEDS GIVEN PER OGT. BT HYPOACTIVE W/ OGT IN PLACE TO LIS, CLAMPED FOR APPROX 1 HR AFTER TRICK RODEO RIDER. BOOTH PATENT/ DRAINING YELLOW URINE. SKIN CONDITION OVERALL INTACT, Q2H REPOSITIONING TO MAINTAIN SKIN INTEGRITY. PROVIDER AT BEDSIDE THIS AM TO EVAL PT. DISCUSSED PT's CONTINUED HTN & RESUMPTION OF HOME COZAAR DOSE PER DR SHEA TO START TODAY. ALSO DISCUSSED PT's ELEVATED CBG READING W/ INSULIN COVERAGE ORDERED Q6H. PROVIDER IS CONSIDERING INCREASING THIS INSULIN COVERAGE TO Q4H. NO OTHER CHANGES AT THIS TIME. WILL CONTINUE TO MONITOR & UPDATE NEEDED.
--- NOTE | 2022-03-28 11:55 | NUR ---
DR MOORE / UPDATE: PROVIDER AT BEDSIDE TO EVAL THIS PT. SHE CONTINUES TO TOLERATE SEDATION VACATION & SBT WELL W/ RR 18-22 & ADEQUATE TVs. SHE IS FOLLOWING DIRECTIONS & MOVING ALL EXTREMITIES, ALTHOUGH REMAINS SLOW TO DO SO. ANSWERS YES/ NO QUESTIONS BY NODDING HEAD. VENT SETTINGS UNCHANGED: SPONTANEOUS W/ PS 5, PEEP 5 & 40% FIO2. DR MOORE STS OKAY FOR EXTUBATION LONG PT HAS ETT CUFF LEAK. YESTERDAY, PER NOTES, THE PT DID NOT HAVE A CUFF LEAK & THERE IS SOME CONCERN REGARDING TRAUMATIC FIELD INTUBATION/ AIRWAY SWELLING. THIS RN HAS CONTACTED JHOAN Ellis, RT, & ASKED THAT SHE VERIFY THE PT HAS A CUFF LEAK PRESENT, PER DR MOORE. SHE HAS NOTIFIED THIS RN THAT THE PT DOES HAVE AN ETT CUFF LEAK, SHE HAS ALREADY HAD TO ADD MORE AIR TO THE CUFF DURING THIS SHIFT. THIS RN REPORTS RT FINDINGS TO DR MOORE & HE STS OKAY TO PROCEED W/ EXTUBATION, ORDERS PLACED. DR MOORE IS ALSO NOTIFIED THAT BECAUSE OF THE PT's ADMITTING DX OF OVERDOSE W/ UNKNOWN CIRCUMSTANCES, SHE WILL NEED TO BE PLACED ON HIGH RISK SI PRECAUTIONS W/ 1:1 SITTER AT BEDSIDE UNTIL SHE CAN ANSWER [place] SUICIDE SCREENING QUESTIONS. LURDES Dodge, NURSING LOAN INTERVIEWER, IS AWARE OF THIS & HAS CALLED IN A SITTER FOR THIS PT. EXTUBATION WILL BE COMPLETED AT THAT TIME, RT AWARE.
--- NOTE | 2022-03-28 12:32 | NUR ---
SUICIDE SCREENING: PT ARRIVED TO HOSPITAL W/ UNKNOWN CIRCUMSTANCES SURROUNDING POSSIBLE OVERDOSE ON PRESCRIBED NARCOTICS. PLAN IS FOR EXTUBATION THIS AFTERNOON, BUT BECAUSE THE PT IS UNABLE TO ANSWER [place] SUICIDE SEVERITY SCREENING QUESTIONS, SHE WILL AUTOMATICALLY BE PLACED UNDER HIGH RISK PRECAUTIONS AT THAT TIME W/ 1:1 SITTER AT BEDSIDE. ROOM MITIGATED PER DOCUMENTATION.
--- NOTE | 2022-03-28 13:39 | NUR ---
CANCELLED EXTUBATION: THIS RN & CRISTAL Dailey RT TO BEDSIDE TO COMPLETE EXTUBATION - SEE PRIOR UPDATE REGARDING DR MOORE. THIS RN ASKS THAT CRISTAL DOUBLE-CHECK PT FOR A CUFF LEAK ON ETT PRIOR TO EXTUBATION. DURING TEST, NO LEAK IS AUSCULTATED BY EITHER THIS RN OR RT CRISTAL. CRISTAL ATTEMPTS AGAIN WHILE LISTENING TO EACH SIDE OF PT's THROAT & CONTINUES TO HEAR NO CUFF LEAK. CUFF REINFLATED & EXTUBATION HELD. THIS RN HAS CONTACTED DR MOORE TO NOTIFY HIM OF THIS ISSUE, STEROIDS ORDERED & EXTUBATION CANCELLED FOR TODAY. FAMILY HAS BEEN UPDATED ON THIS ISSUE & VERBALIZES UNDERSTANDING. 1:1 SITTER AT BEDSIDE FOR ANTICIPATED EXTUBATION. LURDES Dodge, NURSING TRASH COLLECTOR SUPERVISOR, CONTACTED & NOTIFIED OF PT's CHANGED PLAN OF CARE & SITTER NO LONGER NEEDED AT BEDSIDE.
--- NOTE | 2022-03-28 17:02 | NUR ---
SHIFT SUMMARY: NO ACUTE CHAGNES SINCE PRIOR UPDATES. PT REMAINS INTUBATED & ON SPONTANEOUS BREATHING TRIAL. NO SEDATION INFUSING. SHE IS OVERALL DROWSY BUT AWAKENS TO VERBAL STIMULUS & IS ABLE TO FOLLOW DIRECTIONS, SLOW TO RESPOND. LS ARE CLEAR T/O, VENT SETTINGS: SPONTANEOUS W/ PS 5, PEEP 5 & 40% FIO2. DR MOORE WOULD LIKE THE PT TO REMAIN ON SPONTANEOUS FOR LONG TOLERATED. O2 SATS > 92%. MONITOR SHOWS SR W/ HR 60-80s, BP STABLE. HTN IMPROVED SINCE AM MEDS. OGT IN PLACE W/ TRICKLE FEEDS INITIATED AT APPROX 1645 PER DIETARY. BOOTH PATENT/ DRAINING YELLOW URINE. SKIN CONDITION OVERALL INTACT, Q2H REPOSITIONING TO MAINTAIN SKIN INTEGRITY. WILL CONTINUE TO MONITOR & REPORT OFF TO ONCOMING RN.
--- NOTE | 2022-03-28 19:33 | NUR ---
ASSUMPTION OF CARE PT REMAINS INTUBATED ON PS 5/5/40%. SHE HAS BEEN OFF OF SEDATION SINCE THIS AM. SHE WAKENS TO VERBAL STIMULI, FOLLOWS SIMPLE COMMANDS. SHE IS RECEIVING SUPPLEMENTAL POTASSIUM CURRENTLY. PIVOT 1.5 INFUSING VIA OGT AT 15ML/HR WITH 30ML WATER FLUSHES Q4HRS. BOOTH PATENT AND DRAINING TO GRAVITY. PG TO HERBIE. SUICIDE PRECAUTIONS WILL NOT BE DOCUMENTED UNTIL EXTUBATION. PLAN FOR POSSIBLE EXTUBATION TOMORROW. SEE SHIFT ASSESSMENT.
[2022-03-29 04:37] LABS: BASOPHILS ABSOLUTE AUTO 0.03 K/mm3 (0.00-0.23); BASOPHILS PERCENT AUTO 0 % (0-2); EOSINOPHILS PERCENT AUTO 0 % (0-6); Hematocrit 41.3 % (33.0-51.0); Hemoglobin 13.3 g/dL (11.5-16.0); IMMATURE GRAN ABSOLUTE AUTO 0.22 K/mm3 (0.00-0.10); IMMATURE GRAN PERCENT AUTO 1 % (0-1); LYMPHOCYTES ABSOLUTE AUTO 0.98 K/mm3 (0.84-5.20); LYMPHOCYTES PERCENT AUTO 5 % (21-46); MONOCYTES ABSOLUTE AUTO 0.28 K/mm3 (0.16-1.47); MONOCYTES PERCENT AUTO 2 % (4-13); Mean Corpuscular HGB Conc 32.2 g/dL (31.5-36.5); Mean Corpuscular Volume 99 fL (80-100); Mean Platelet Volume 11.6 fL (9.1-12.4); NEUTROPHILS ABSOLUTE AUTO 17.02 K/mm3 (1.96-9.15); NEUTROPHILS PERCENT AUTO 92 % (41-73); Platelet Count 432 K/mm3 (150-400); RDW Coefficient Variation 13.4 % (11.7-14.2); RDW Standard Deviation 48.6 fL (35.1-46.3); Red Blood Cell Count 4.16 M/mm3 (3.80-5.20); White Blood Cell Count 18.53 K/mm3 (4.00-11.30)
[2022-03-29 04:58] LABS: Albumin, Blood 2.7 g/dL (3.4-5.0); Albumin/Globulin Ratio 0.7 (0.8-1.8); Bilirubin, Total 0.5 mg/dL (0.1-1.0); Calcium, Blood 8.8 mg/dL (8.5-10.1); Creatinine, Blood 1.03 mg/dL (0.40-1.00); Globulin, Blood 3.9 g/dL (2.2-4.0); Magnesium, Blood 2.5 mg/dL (1.6-2.4); Total Protein, Blood 6.6 g/dL (6.4-8.2)
--- NOTE | 2022-03-29 06:00 | NUR ---
SHIFT SUMMARY PT REMAINS INTUBATED WITH VENT SETTINGS PC 5/5/40%. SHE HAS BEEN OFF OF SEDATIVES SINCE YESTERDAY. SHE WAKENS TO VERBAL STIMULI BUT CLOSES EYES QUICKLY. SHE APPEARS DROWSY BUT WILL FOLLOW COMMANDS INCLUDING SQUEEZING HANDS AND WIGGLING TOES. SHE ANSWERS QUESTIONS BY NODDING HEAD. SHE DENIES ANY PAIN/DISCOMFORT AND ANXIETY THROUGHOUT SHIFT. PIVOT 1.5 INFUSING VIA OGT AT 15ML/HR WITH 30ML WATER FLUSHES Q4. BOOTH PATENT AND DRAINING TO GRAVITY WITH SHIFT OUTPUT OF 350ML. PT HAS BEEN HYPERTENSIVE FOR MOST OF THE SHIFT, MEDICATED PER EMAR. PLAN TO POSSIBLY EXTUBATE TODAY. WILL REPORT TO ONCOMING RN.
--- NOTE | 2022-03-29 08:29 | NUR ---
ASSUMED CARE / Cassie VIGIL & OPAL: REPORT RECEIVED FROM MALCOM Barriga RN. ASSUMED CARE OF THIS PT AT APPROX 0700. ON ASSESSMENT, THE PT IS RESTING QUIETLY & AWAKENS EASILY TO VERBAL STIMULUS. SHE IS PHYSICALLY WEAK & SLOW TO RESPOND WHEN PROMPTED TO MOVE EXTREMITIES BUT DOES EVANS. SHE IS ANSWERING YES/ NO QUESTIONS BY NODDING HEAD & NODS "YES" TO RECOGNIZING FAMILY MEMBERS AT BEDSIDE. LS ARE CLEAR T/O, O2 SATS > 92%. VENT SETTINGS: SPONT W/ PS 5, PEEP 5 & 40%. MONITOR SHOWS SR W/ HR 60-80s, HTN W/ SCHEDULED AM MEDS. OGT IN PLACE W/ TRICKLE FEEDS INFUSING AT GOAL RATE OF 15 ML/HR, LOW RESIDUALS. TEMP BOOTH PATENT/ DRAINING YELLOW URINE. SKIN CONDITION OVERALL INTACT, SOME DEPENDENT SWELLING NOTED TO HANDS & BLE. Cassie VIGIL & JHOAN AT BEDSIDE THIS AM TO EVAL PT. PERSISTANT HTN HAS BEEN ADDRESSED & COZAAR DOSING INCREASED. INCREASING CBGs ALSO ADDRESSED W/ INCREASED INSULIN GLARGINE DOSING. PROVIDERS HAVE SPOKEN W/ THE FAMILY MEMBERS AT BEDSIDE & PROVIDED THEM W/ AN UPDATE. WILL CONTINUE TO MONITOR & UPDATE NEEDED.
--- NOTE | 2022-03-29 09:30 | NUR ---
DR MOORE: PROVIDER AT BEDSIDE THIS AM TO EVAL PT AT APPROX 0900. FRANCISCO Franco RT, ALSO AT BEDSIDE DURING THIS TIME. THE PT REMAINS DROWSY BUT ABLE TO AWAKEN & FOLLOW DIRECTIONS WELL. CUFF LEAK TEST PERFORMED - AT FIRST, NO LEAK IS ABLE TO BE AUSCULTATED WHEN CUFF FULLY DEFLATED, AFTER APPROX 3-5 MINS OF HAVING CUFF DEFLATED, A SMALL LEAK IS AUSCULTATED. DR MOORE STS THAT THIS THE PT IS SUITABLE FOR EXTUBATION & WE WILL CHECK FOR A CUFF LEAK IMMEDIATELY PRIOR TO REMOVING ETT WELL. CUFF REINFLATED W/ 1.5 CC AIR TO RESOLVE LEAK, PER FRANCISCO DELANEY. OVER THE NEXT 30-45 MINS, THIS RN HAS ADDED A TOTAL OF 3 CC AIR TO ETT CUFF IN 1 CC INCREMENTS FOR INCREASING CUFF LEAK & LOW TIDAL VOLUMES NOTED ON VENT. DR MOORE & FRANCISCO DELANEY HAVE BEEN UPDATED ON THIS WELL.
--- NOTE | 2022-03-29 11:30 | NUR ---
EXTUBATION / SI PRECAUTIONS: THIS RN & RT DARREL, TO BEDSIDE AT APPROX 1110 FOR EXTUBATION. ROCIO ELLISON, HAS BEEN ASSIGNED THIS PT's 1:1 SITTER PRIOR TO BEING ABLE TO ANSWER [place] SUICIDE SEVERITY QUESTIONS - SEE RN NOTES FROM YESTERDAY REGARDING THIS. CUFF LEAK TEST AGAIN COMPLETED & CUFF LEAK IS AUDIBLE APPROX 1 MIN AFTER CUFF IS FULLY DEFLATED. THE PT REMAINS ORIENTED TO SURROUNDINGS & IS ANSWERING YES/ NO QUESTIONS APPROPRIATELY, FOLLOWS DIRECTIONS WELL. PT EXTUBATED AT 1115, 1:1 SITTER AT BEDSIDE AT THAT TIME. SHE IS PLACED ON 4L NC W/ O2 SATS > 92%, TITRATED UP TO 5L NC & PLACED IN MOUTH FOR DESATS TO 90% & PT BREATHING THROUGH MOUTH. O2 SATS IMPROVED TO 93-94%. SHE DOES HAVE SLIGHT SNORING NOTED WHILE RESTING, BUT THERE IS NO STRIDOR NOTED DURING AUSCULTATION. ALBUTEROL, DUONEB & EPI HAVE BEEN GIVEN VIA NEB [place] BY RT DARREL.
--- NOTE | 2022-03-29 18:22 | NUR ---
[address] MOORE PATIENT EXTUBATED TODAY. SHE BECAME MORE ALERT BUT STILL QUITE LETHARGIC THIS AFTERNOON. ASSESSED HER AND FOUND HER RIGHT EYE NOT WANTING TO MOVE PAST MIDLINE TO LEFT. WHEN RN/ CHARGE HARISH ASSESSED SHE WOULD MOVE HER RIGHT AND LEFT EYE UP AND DOWN FOLLOWING A LIGHT BUT NOT MOVE HER RIGHT EYE PAST MIDLINE GOING EITHER LEFT OR RIGHT FOLLOWING THE LIGHT OR BY MANUAL MANIPULATION OF HEAD TURNS. LEFT EYE IS MOVING APPROPRIATELY TO COMMAND. SHE WILL NOT YES AND NO TO COMMANDS BUT IS NON VERBAL AT THIS TIME. ORDERED LASIX FOR HER HYPERTENSION AND SHE DOES GET HYDRALAZINE IV. ORDERED A HEAD CT, AWAITING TURN TO GO.
--- NOTE | 2022-03-29 19:00 | NUR ---
ASSUMED CARE. REPORT RECEIVED FROM JOSSIE MARTINEZ. PT RESTING IN BED ATT, ON HIGH FLOW 02 NEBULIZER, 12 L/MIN VIA FACE MASK. PG IN IRENE, 20GA IN R/W, NS TKO AT 10 ML/HR. BOOTH CATHETER IN PLACE, DRAINING TO GRAVITY. VS STABLE ATT, WILL CONTINUE TO MONITOR.
--- NOTE | 2022-03-29 19:00 | NUR ---
SHIFT SUMMARY: NO ACUTE CHANGES SINCE PRIOR UPDATES. NEURO ASSESSMENT SAME NOTED PRIOR BY DK YANES RN. LS REMAINS COARSE. O2 SATS > 90% ON AVG. MONITOR SHOWS SR-ST W/ HR 80-100s, FREQUENT PVCs. NPO R/T SOMNOLENCE & AMS. TEMP BOOTH PATENT/ DRAINING YELLOW URINE. SKIN CONDITION OVERALL INTACT, DEPENDENT EDEMA TO BUE & BLE. Q2H REPOSITIONING TO MAINTAIN SKIN INTEGRITY. WILL CONTINUE TO MONITOR & REPORT OFF TO ONCOMING RN.
[2022-03-30 04:40] LABS: BASOPHILS ABSOLUTE AUTO 0.03 K/mm3 (0.00-0.23); BASOPHILS PERCENT AUTO 0 % (0-2); EOSINOPHILS PERCENT AUTO 0 % (0-6); Hematocrit 41.5 % (33.0-51.0); Hemoglobin 13.3 g/dL (11.5-16.0); IMMATURE GRAN ABSOLUTE AUTO 0.24 K/mm3 (0.00-0.10); IMMATURE GRAN PERCENT AUTO 2 % (0-1); LYMPHOCYTES ABSOLUTE AUTO 1.14 K/mm3 (0.84-5.20); LYMPHOCYTES PERCENT AUTO 7 % (21-46); MONOCYTES ABSOLUTE AUTO 0.84 K/mm3 (0.16-1.47); MONOCYTES PERCENT AUTO 5 % (4-13); Mean Corpuscular HGB 31.3 pg (26.0-34.0); Mean Corpuscular Volume 98 fL (80-100); Mean Platelet Volume 11.6 fL (9.1-12.4); NEUTROPHILS ABSOLUTE AUTO 13.97 K/mm3 (1.96-9.15); NEUTROPHILS PERCENT AUTO 86 % (41-73); Platelet Count 491 K/mm3 (150-400); RDW Coefficient Variation 13.5 % (11.7-14.2); RDW Standard Deviation 48.3 fL (35.1-46.3); Red Blood Cell Count 4.25 M/mm3 (3.80-5.20); White Blood Cell Count 16.22 K/mm3 (4.00-11.30)
[2022-03-30 04:57] LABS: Albumin, Blood 2.6 g/dL (3.4-5.0); Anion Gap 9 mmol/L (6-16); Blood Urea Nitrogen 38 mg/dL (8-24); Bun/Creatinine Ratio 37.3 (12.0-20.0); CO2, Blood 26 mmol/L (21-32); Calcium, Blood 9.2 mg/dL (8.5-10.1); Chloride, Blood 112 mmol/L (98-108); Creatinine, Blood 1.02 mg/dL (0.40-1.00); Glomerular Filtration Rate 54 (60-); Glucose, Blood 250 mg/dL (70-99); Phosphorus, Blood 3.1 mg/dL (2.5-4.9); Potassium, Blood 3.8 mmol/L (3.5-5.5); Sodium, Blood 147 mmol/L (136-145)
--- NOTE | 2022-03-30 06:11 | NUR ---
SUMMARY. PT RESTED QUIETLY IN BED THROUGHOUT SHIFT. PT SLIGHTLY MORE RESPONSIVE THROUGHOUT SHIFT, ABLE TO NOD YES AND NO TO QUESTIONS ATT. NOTED L/SIDED DEFICIT IN UPPER EXTREMITY STRENGTH, R/EYE MIDLINE. ON AEROSOL MASK, 12 L/MIN, SATS >93%. PG IN PLACE, DRESSING/EXTENSION SET REPLACED DUE TO LEAK. BOOTH CATHETER IN PLACE, 1200 MLS URINE OUT THIS SHIFT. VS STABLE, SEE SHIFT ASSESSMENT FOR FURTHER DETAILS. WILL CONTINUE TO MONITOR AND REPORT OFF TO DAYSHIFT RN.
--- NOTE | 2022-03-30 08:18 | NUR ---
0800 ASSUMED CARE PATIENT IS DROWSY THIS AM. SHE RECIEVED A BATH AND BOOTH CARE DONE. HER MOUTH IS DRY, LOTS OF ORAL CARE DONE.. SHE HAS NO GAG TO STIMULI, NO COUGH, + CARLEEN HOWEVER RIGHT EYE DOES NOT MOVE PAST MIDLINE RIGHT OR LEFT BUT DOES MOVE UP AND DOWN TO COMMAND, SHE MOVES HER LEFT EYE WITHOUT DIFFICULTY. SHE DOES NOT MOVE HER LEFT HAND TO COMMONAD BUT WILL WITHDRAWL TO PAINFUL STIMULI. SHE MOVES LOWER EXTREMETIES TO COMMAND. SHE NODS YES AND NO TO QUESTION BUT OTHERWISE ONLY MOANS BUT DOES NOT SPEAK WORDS/ APHASIC. VS STABLE BP IS ELEVATED BUT TO PARAMETERS AT THIS TIME. SKIN HAS A FEW BRUISES TO HANDS ONLY. SHE IS ON AN AIRFLOW MASK WITH 12L OXYGEN BLEED IN/ FACE PADDED THIS AM TO PREVENT SKIN BREAKDOWN. IV'S TO RIGHT HAND SALINE LOCKED AND RIGHT UPPER FORARM POWERGLIDE WITH TKO IV FLUID GOING. FAMILY IN TO SEE PATIENT THIS AM. PATIENT NOT INTERACTING WITH FAMILY YET. 'Caleb TOLD OF PATIENTS NO GAG AND NPO UNABLE TO GET PO MEDICATION LOPRESSOR AND COZAAR.
--- NOTE | 2022-03-30 08:34 | NUR ---
SUICIDE PRECAUTIONS DR THORNTON PUT PATIENT LOW RISK. VIDEO REMOTE MONITORING ON, 1:1 SITTER GONE.
--- NOTE | 2022-03-30 10:37 | NUR ---
1000 PATIENT CHANGED OVER TO COMFORT CARE AT THIS TIME. RT PUT PATIENT TO OXYMIZER. DR ORDERED COMFORT MEDICATIONS. GIOVANNIT REPOSITIONED AND IS CALM. FAMILY IS AT BEDSIDE. HAS BEEN REQUESTED TO COME TO BEDSIDE.
--- NOTE | 2022-03-30 10:49 | NUR ---
Spiritual Care - ICU Nurse request for a [employer] executive office manager Family members requested a Business Project Manager as Pt. was moving to comfort care. This executive office manager contacted Father Tiburcio, who would become avilable to visit pt. and family members. Informed Pts. son who was present with the Pt. that a Business Project Manager has been contacted. Also informed both ICU nurse and palliative care.
--- NOTE | 2022-03-30 11:39 | NUR ---
Ethics Consultation Order received and processed. Electronic health record analyzed, case material discussed with staff pharmacist hospital and Guardian and prognostic indicators and medical history reviewed. Principal is a 70 y/o male with Diabetes, hypertension, COPD, dementia, paranoid schizophrenia, toxic encephalopathy and a history of PAD. After tests performed patient appears to have had an acute WA. Pt has a POLST that states that he is DNR with Limited treatment specifying basic care only. The pt's Guardian, Ruthy [place] has been educated to the level of risk associated with an angiogram and potential stint requirements. She is not in favor of proceeding with the intervention, as the [facility] advance planning intrument stipulates a non-aggressive approach to medical care. Thank you for this consult Epifanio Klein
--- NOTE | 2022-03-30 17:22 | NUR ---
1700 TOOK PATIENT OFF OXYGEN PER FAMILY REQUEST AND ASSURANCE TO PATIENT IF SHE BECOME FEARFUL OR ANXIOUS WE CAN GIVE HER MEDICATION TO HELP HER BE MORE COMFORTABLE. PATIENT IS OTHERWISE CALM AND COMFORTABLE IN BED. FAMILY REQUEST SHE NOT BE MOVED IN THE BED HOWEVER SHE WAS MOVED TO ROOM ICU 1 FOR GABRIELE MARTINEZ TO RESUME CARE THIS SHIFT. BOOTH WAS EMPTIED AND ORAL WAS DONE BEFORE THE TRANSFER. ONE IV AT RIGHT WRIST WAS ALSO DC'D PER FAMILIES REQUEST. PATIENT STILL HAVE ONE POWERGLIDE TO RIGHT UPPER FOREARM.
--- NOTE | 2022-03-30 18:20 | NUR ---
Assumed care from Donato MARTINEZ. Patient started to become agitatedand medicated per MAR. Family at bedside. She remains able to communicate yes and no by knoding.
--- NOTE | 2022-03-30 20:00 | NUR ---
ANJELICA IS LYING QUIETLY IN THE BED, SPOKE TO THE PATIENT, FAMILY SAYS, "SHE'S BEEN MEDICATED". I INSTRUCTED THEM THAT I WANTED HER TO BE AWARE THAT I WAS THERE AND WOULD BE TAKING CARE OF HER. RESPIRATIONS EVEN, UNLABORED, EYES REMAINED CLOSED, NO VISIBLE RESPONSE TO MY SPEAKING. FAMILY ENCOURAGED TO MAKE THEIR NEEDS KNOWN. HR 90'S SATS ~80%, RESP RATE IN THE 30'S.
--- NOTE | 2022-03-30 21:33 | NUR ---
FAMILY LEFT, PT TURNED, ORAL CARE AND CATH CARE COMPLETED, PT NODDED THAT SHE WAS UNCOMFORTABLE, MEDICATION GIVEN.
--- NOTE | 2022-03-30 21:35 | NUR ---
PT WITH FAN IN USE AND MUSIC PLAYING
--- NOTE | 2022-03-31 05:42 | NUR ---
MS. DEJESUS CONTINUES WITH COMFORT CARE MEASURES. HEART RATE IN THE 90'S, BREATHING SONOROUS 16-18 BPM, HER OXYGEN SATS REMAIN IN THE MID-HIGH 70S. GRANDDAUGHTER AT THE BEDSIDE. NO OTHER CHANGES.
--- NOTE | 2022-03-31 08:41 | NUR ---
CARE OF PT ASSUMED AT 0700. PT COMFORT CARE PT. PT SLEEPING APPEARED COMFORTABLE ON ASSESSMENT. PT AWAKENS TO VOICE AND ABLE TO NOD HEAD APPROPRIATELY TO QUESTIONS. PT'S NODDED HEAD NO TO PAIN AT 0730, YES TO COMFORTABLE, YES TO WARM ENOUGH, NO TO SOB, NO TO RESPOSIONING. ORAL CARE DONE WHICH HURT PT, WILL USE GLY. SWAB NEXT TIME IT IS SOFTER. DR VIGIL AND DR POP IN THIS AM. PT'S DAUGHTER AND GRAND-DAUGHTER AT BEDSIDE. DAUGHTER STATED PT IN PAIN AT 0800. PT REASSESSED AND DENIED PAIN BUT DID WANT TO BE REPOSITIONED. PT REPOSITIONED ON LEFT SIDE. ALL EXTREMITIES ELEVATED ON PILLOWS, PT FELL ASLEEP IMMEDIATELY AFTER REPOSTIONING.
--- NOTE | 2022-03-31 10:24 | NUR ---
FAMILY AT BEDSIDE. PT VERY AWAKE, APPEARS COMFORTABLE, NODS HEAD TO BEING COMFORTABLE, DENIES PAIN, NAUSEA, SOB. DECLINED REPOSITIONING
--- NOTE | 2022-03-31 10:51 | NUR ---
Spiritual Care visit. Family are present. Confirm with family that Father Tiburcio had visted pt. yesterday. Establish rapport with family, and share that Father Tiburcio can be called in, should there be an eminent change of pts. condition. Family verbalized gratitude for the spiritual care visit.
--- NOTE | 2022-03-31 12:22 | NUR ---
PT REPOSITIONED TO RIGHT SIDE. ORAL CARE AND CATH CARE COMPLETED. MOUTH MOISTURIZER PLACED. PT DENIES DISCOMFORT/PAIN. PT FEELS WARM, BLANKET REMOVED, SHEET PLACED, FAN PLACED ON PT PER HER REQUEST; PT ABLE TO COMMUNICATE VIA HEAD NODS.
--- NOTE | 2022-03-31 15:53 | NUR ---
PT DENIES COMPLAINTS. PT REPOSITIONED. THEATRICAL SCENIC DESIGNER SPEAKING W FAMILY. ATROPINE GTTS GIVEN FOR EXCESS SECRETIONS.
--- NOTE | 2022-03-31 17:19 | NUR ---
CHECKED ON PT SATS DROPPED TO 70% AND HEART RATE HAD INCREASED. PT W GRIMACE. PT NODDED YES TO DISCOMFORT AND YES TO FEELING MORE SOB. PT NODDED YES TO TRYING SOME PAIN MEDICATION FOR COMFORT. RESP RATE A LITTLE UP WELL. PT DID CHOKE SOMEWHAT ON THE SL MS, MAY GIVE IV MS NEXT TIME IF PT REQUIRES PAIN MEDS. FAMILY UPDATED.
--- NOTE | 2022-03-31 18:35 | NUR ---
SATS IN THE 60'S, PT WITH DYSPNEA; BREATHING LABORED, AND GRIMACING. MS 3MG GIVEN IV. 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
--- NOTE | 2022-03-31 19:15 | NUR ---
PT REPORT RECEIVED, FAMILY AT BEDSIDE AND PT RESTING. ASSUMED PT CARE. 1930: FAMILY CONCERNED ABOUT PT RESPIRATIONS BEING LABORED. MEDICATIONS REVIEWED, PT GIVEN 4 MG OF MORPHINE AND SUBLINGUAL ATROPINE DROPS.
--- NOTE | 2022-03-31 20:00 | NUR ---
PT APPEARS TO BE COMFORTABLE. FAMILY STATES THAT OCCASIONALLY HER RESPIRATORY PATTERN IS MORE LABORED. WILL CONTINUE TO MONITOR AND MEDICATE NEEDED FOR DISCOMFORT OR AIR HUNGER.
--- NOTE | 2022-04-01 | NUR ---
PT IS MOSTLY VERY QUIET WITH NO CHANGE IN BODY POSITION OR FACIAL EXPRESSION. PT'S RESPIRATIONS DO SEEM TO BE MORE LABORED AT TIMES AND MEDICATIONS GIVEN ACCORDINGLY.
--- NOTE | 2022-04-01 03:32 | NUR ---
0331- PT NOTED TO BE PULSLESS AND APNEIC WITH ASYSTOLE NOTED ON THE MONITOR. AUSCULTATION WAS DONE WITH NO HEART TONES NOTED. PT'S SON, BRIT AND DAUGHTER, SHERIN ARE AT BEDSIDE. ALL APPROPRIATE NOTIFICATIONS MADE.
== END 2022-04-01 03:31 | DRG 871 ==
LOC: ER 16:40 → ICUE 19:43 → ICUW 19:43 → ICUE 03-30 17:21
PROVIDERS: Emergency Medicine; Family Medicine; Internal Medicine; Internal Medicine Critical Care Medicine; ADMIT Internal Medicine
PROC: 3E03329 Introduction of Other Anti-infective into Peripheral Vein, Percutaneous Approach (ICD-10-PCS; 2022-03-26)
PROC: 5A1945Z Respiratory Ventilation, 24-96 Consecutive Hours (ICD-10-PCS; principal; 2022-03-27)
DX: A41.9 Sepsis, unspecified organism (principal); I63.9 Cerebral infarction, unspecified; J96.01 Acute respiratory failure with hypoxia; G92.8 Other toxic encephalopathy; J69.0 Pneumonitis due to inhalation of food and vomit; N17.9 Acute kidney failure, unspecified; E87.2 Acidosis; Z68.41 Body mass index [BMI] 40.0-44.9, adult; Z66 Do not resuscitate; R65.20 Severe sepsis without septic shock; Z20.822 Contact with and (suspected) exposure to COVID-19; T40.2X1A Poisoning by other opioids, accidental (unintentional), initial encounter; I11.0 Hypertensive heart disease with heart failure; I25.10 Atherosclerotic heart disease of native coronary artery without angina pectoris; Z51.5 Encounter for palliative care; G89.4 Chronic pain syndrome; N18.30 Chronic kidney disease, stage 3 unspecified; M79.7 Fibromyalgia; E87.6 Hypokalemia; E66.9 Obesity, unspecified; Z78.1 Physical restraint status; E11.42 Type 2 diabetes mellitus with diabetic polyneuropathy; J45.909 Unspecified asthma, uncomplicated; E11.65 Type 2 diabetes mellitus with hyperglycemia; E86.0 Dehydration; E83.39 Other disorders of phosphorus metabolism; I25.2 Old myocardial infarction; Z95.5 Presence of coronary angioplasty implant and graft; Z90.49 Acquired absence of other specified parts of digestive tract; Z98.890 Other specified postprocedural states; Z90.710 Acquired absence of both cervix and uterus; Z88.8 Allergy status to other drugs, medicaments and biological substances; Z79.4 Long term (current) use of insulin; Z79.82 Long term (current) use of aspirin; Z79.899 Other long term (current) drug therapy
CPT/HCPCS: 0241U; 36415; 36600; 51702; 70450; 71045; 80047; 80053; 80069; 81001; 82550; 82553; 82803; 82947; 83605; 83735; 83880; 84100; 84132; 84484; 85014; 85025; 87040; 87070; 87086; 87205; 93005; 93010; 93306; 94002; 94003; 94640; 94664; 94762; 96374-59; 96375-59; 99291-25; A9270; C1751; C9113; J0295; J0360; J0696; J1100; J1650; J1815; J1940; J2060; J2270; J2310; J2405; J2704; J3370; J3480; J7030; J7040; J7060